=== PATIENT | female | born 1935 | race Caucasian/White ===

== ENCOUNTER 2016-06-19 14:10 | Inpatient (IN) | payer MEDICARE, OTHER ==
--- NOTE | 2016-06-19 14:53 | Emergency Department Record ---
History of Present Illness - General Chief Complaint: Abdominal Pain Stated Complaint: ABD PAIN,VOMITING Time Seen by Provider: 06/19/16 14:53 Source: Patient Mode of Arrival: Ambulatory Limitations: No limitations - History of Present Illness Initial Comments: The patient is here due to a 12 hour hx of abdominal pain with vomiting. She has vomited about 12 times but denies any diarrhea or passing any gas. The patient has had multiple abdominal surgeries and has had an SBO in the past and a surgery for adhesions at [facility]. She denies any other issues. MD Complaint: Abdominal pain Onset/Timin -: Hour(s) Location: Diffuse Severity: Mild Quality: Cramping Consistency: Intermittent Improves With: Nothing Worsens With: Nothing Associated Symptoms: Vomiting Treatments Prior to Arrival: Other - Related Data Home Medications Medication Instructions Recorded Confirmed Last Taken Candesartan Cilexetil [Atacand] 32 mg PO DAILY 06/19/16 06/19/16 06/18/16 Celecoxib [Celebrex] 100 mg PO BID 06/19/16 06/19/16 Unknown Dicyclomine HCl [Bentyl] 20 mg PO ASDIR 06/19/16 06/19/16 06/18/16 Estrogens, Conjugated [Premarin] 0.45 mg PO DAILY 06/19/16 06/19/16 06/18/16 Fluticasone/Salmeterol 100/50 1 disk IH Q12H 06/19/16 06/19/16 06/18/16 [Advair 100/50] Metoprolol Succinate [Toprol Xl] 25 mg PO DAILY 06/19/16 06/19/16 06/18/16 Rabeprazole Sodium [Aciphex] 20 mg PO DAILY 06/19/16 06/19/16 06/18/16 Tramadol HCl [Ultram] 50 mg PO Q6H 06/19/16 06/19/16 Unknown Trazodone HCl 100 mg PO DAILY 06/19/16 06/19/16 06/18/16 Allergies Allergy/AdvReac Type Severity Reaction Status Date / Time ciprofloxacin [From Cipro] AdvReac RASH Verified 06/19/16 14:56 ciprofloxacin HCl AdvReac RASH Verified 06/19/16 14:56 [From Cipro] esomeprazole magnesium AdvReac RASH Verified 06/19/16 14:56 [From Nexium] levofloxacin [From Levaquin] AdvReac HIVES Verified 06/19/16 14:56 Travel Screening - Travel/Exposure Within Last 30 Days Have you traveled within the last 30 days?: No - Travel/Exposure Within Last Year Have you traveled outside the [place] in the last year?: No - Additonal Travel Details Have you been exposed to anyone with a communicable illness?: No - Travel Symptoms Symptom Screening: None Review of Systems Constitutional: Denies: Chills, Fever Eyes: Denies: Eye discharge ENT: Denies: Congestion Respiratory: Denies: Cough Cardiovascular: Denies: Arrhythmia, Chest pain Endocrine: Denies: Fatigue Gastrointestinal: Reports: Abdominal pain, Constipation, Nausea, Vomiting. Denies: Diarrhea Genitourinary: Denies: Dysuria Musculoskeletal: Denies: Back pain Skin: Denies: Bruising Past Medical History - SOCIAL HISTORY Smoking Status: Former smoker Alcohol Use: None Drug Use: None - RESPIRATORY Hx Respiratory Disorders: Yes Hx Asthma: Yes Hx COPD: Yes - CARDIOVASCULAR Hx Cardio Disorders: No - NEURO Hx Neuro Disorders: No - GI Hx GI Disorders: Yes Hx Abdominal Pain: Yes Comment:: Adhesions - Hx Genitourinary Disorders: No - ENDOCRINE Hx Diabetes: No Hx Thyroid Disease: No - MUSCULOSKELETAL Hx Musculoskeletal Disorders: Yes Hx Arthritis: Yes - PSYCH Hx Psych Problems: No - HEMATOLOGY/ONCOLOGY Hx Hematology/Oncology Disorders: No Family Medical History Any Significant Family History?: No Physical Exam - General General Appearance: Alert, Oriented x3, Cooperative, No acute distress - Head Head exam: Atraumatic, Normocephalic, Normal inspection - Eye Eye exam: Normal appearance, PERRL - ENT Throat exam: Normal inspection. negative: Tonsillar erythema, Tonsillar exudate - Neck Neck exam: Normal inspection, Full ROM. negative: Tenderness - Respiratory Respiratory exam: Normal lung sounds bilaterally. negative: Respiratory distress - Cardiovascular Cardiovascular Exam: Regular rate, Normal rhythm, Normal heart sounds - GI/Abdominal GI/Abdominal exam: Soft, Distended, Tenderness (There is diffuse upper abdominal tenderness.). negative: Diminished bowel sounds, Guarding, Pulsatile mass, Rebound, Rigid - Extremities Extremities exam: Normal inspection, Full ROM, Normal capillary refill. negative: Tenderness - Neurological Neurological exam: Alert, Normal gait. negative: Abnormal gait, Motor sensory deficit - Psychiatric Psychiatric exam: negative: Agitated, Anxious Course Vital Signs 06/19/16 14:35 Temperature 97.7 F Pulse Rate 88 Respiratory 20 Rate Blood Pressure 174/83 Pulse Ox 96 - Reevaluation(s) Reevaluation #1: The patient is doing very well at this time. She is resting comfortably with no nausea, vomiting, or pain. I did explain the CT results to her and the need for admission and she accepts the plan. I also did discuss the case with Dr. Blake and she accepts the patient for admission. 06/19/16 16:26 Medical Decision Making - Data Complexity MDM Data: Labs Ordered and/or Reviewed, X-Ray Ordered and/or Reviewed - Lab Data Result diagrams: 06/19/16 15:20 06/19/16 15:20 - Radiology Data Radiology results: Report reviewed (Abd CT: Partial SBO.) Disposition Disposition: Admit Clinical Impression: Partial small bowel obstruction Disposition: Still a Patient at [facility] Decision to Admit: Admit from ER Decision to Admit Date: 06/19/16 Decision to Admit Time: 16:28 Accepting Physician: Lou Time Discussed w/Accepting Physician: 16:28 Condition: (1) Good Instructions: Abdominal Pain (ED) Forms: Patient Portal Access Time of Disposition: 16:27
[2016-06-19] MEDS ORDERED: 0.9 % SODIUM CHLORIDE 1,000 ML BAG IV ONE (15:01)
[2016-06-19] MEDS ORDERED: HYDROMORPHONE HCL 1 MG/ML CPJ IVP ONE (15:01)
[2016-06-19] MEDS ORDERED: ONDANSETRON HCL IV 4 MG/2 ML VIAL IV ONE (15:01)
[2016-06-19 15:41] LABS: ALBUMIN 4.7 gm/dL (3.5-5.0); ALKALINE PHOSPHATASE 90 U/L (38-126); ALT/SGPT 48 U/L (9-52); ANION GAP 10.7 (7-16); AST/SGOT 44 U/L (14-36); BILIRUBIN,TOTAL 1.25 mg/dL (0.2-1.3); BLOOD UREA NITROGEN 10 mg/dL (7-17); CARBON DIOXIDE 27.3 mmol/L (22-30); CREATININE 0.6 mg/dL (0.52-1.04); EST GLOMERULAR FILTRATION RATE > 60 ml/min; GLUCOSE,RANDOM 116 mg/dL (70-110); LIPASE 13 U/L (23-300); TOTAL PROTEIN 7.1 gm/dL (6.3-8.2)
[2016-06-19 15:59] LABS: HEMATOCRIT 48.1 % (35.0-47.0); HEMOGLOBIN 15.2 gm/dl (11.6-16.0); MEAN CELL VOLUME 88.9 fl (81-97); MEAN CORPUSCULAR HGB CONC 31.6 g/dl (32-36); MEAN PLATELET VOLUME 10.4 fl (7.4-10.4); PLATELET COUNT 268 K/uL (130-400); RED BLOOD COUNT 5.41 M/uL (3.80-5.40); RED CELL DISTRIBUTION WIDTH 13.8 % (11.5-14.5); WHITE BLOOD COUNT W/O DIFF 12.6 K/uL (4.2-12.2)
[2016-06-19 16:24] LABS: PLATELET ESTIMATE NORMAL (NORMAL)
[2016-06-19] MEDS ORDERED: FLUTICASONE/SALMETEROL 100/50 DISKUS INH SCH ×2 (18:08→22:00)
[2016-06-19] MEDS ORDERED: ONDANSETRON HCL IV 4 MG/2 ML VIAL IVP PRN (18:08)
[2016-06-19] MEDS ORDERED: HYDROMORPHONE HCL 1 MG/ML CPJ IVP PRN (18:08)
[2016-06-19] MEDS ORDERED: ACETAMINOPHEN 325 MG TAB PO PRN (20:06)
[2016-06-19] MEDS ORDERED: DICYCLOMINE HCL 10 MG CAPSULE PO PRN (20:06)
[2016-06-19] MEDS ORDERED: TRAMADOL HCL 50 MG TABLET PO PRN (20:06)
[2016-06-19] MEDS: 0.9 % SODIUM CHLORIDE 1000ML 1,000 ML IV PRN (21:10)
[2016-06-19] MEDS ORDERED: TRAZODONE 50 MG TABLET PO SCH (22:00)
[2016-06-19] MEDS: CELECOXIB 100 MG CAPSULE PO SCH (22:04)
[2016-06-20] MEDS ORDERED: PANTOPRAZOLE SODIUM 40 MG TABLET PO SCH (07:00)
--- NOTE | 2016-06-20 07:38 | CT SCAN REPORT ---
EXAM: CT OF THE ABDOMEN AND PELVIS WITHOUT CONTRAST HISTORY: PAIN ACROSS ABDOMEN FOR TWO DAYS, PARTICULARLY IN THE UPPER ABDOMEN, WITH VOMITING. TECHNIQUE: Axial CT scan of the abdomen and pelvis was performed without oral or IV contrast. Comparison: None. FINDINGS: Surgical clips in the gallbladder fossa consistent with prior cholecystectomy. There are enumerable low attenuation masses associated with the left kidney. These are incompletely evaluated without IV contrast although probably represent multiple renal cysts. The largest of these measures approximately 12 cm in diameter and has a small amount of calcification in the wall as well as probably a partially calcified septum. Because there are no appreciable cysts within the right kidney this does not appear to represent typical polycystic renal disease. There is a small low attenuation mass in the left adrenal measuring about 1.9 cm in size, nonspecific although probably an incidental lipid rich adenoma. No intrarenal calculi is seen on the right with no hydronephrosis or hydroureter on the right. No right ureteral calculus seen and no bladder calculus evident. No intrarenal calculi evident on the left and no hydroureter on the left evident with no left ureteral calculus seen. Evaluation of the bowel and viscera is very limited without oral or IV contrast. Given this limitation, no definite hepatic, splenic, right adrenal, right renal, or pancreatic mass identified. The uterus is not well seen and is presumably surgically absent. I recommend correlation with surgical history as no such history was provided. Mild amount of free fluid in the pelvis is nonspecific. Moderate diverticulosis in the left side of the colon fairly diffusely with a few diverticula in the right side of the colon as well. No definite diverticulitis evident. The colon and distal ileum are of normal caliber, however, there is dilatation of the jejunum and proximal ileum. Findings suggest a component of small bowel obstruction. Exact point and etiology of the apparent small bowel obstruction is difficult to establish. No free intraperitoneal air is evident. Diffuse degenerative changes in the lumbar spine with anterior subluxation of the body of L3 on L4 which appears to be on a degenerative basis related to the extensive facet joint arthropathy. IMPRESSION: 1. ENUMERABLE LOW ATTENUATION MASSES ARISING FROM THE LEFT KIDNEY PRESUMABLY REPRESENTING MULTIPLE VARIABLE SIZED CYSTS, SOME OF WHICH CONTAIN A SMALL AMOUNT OF CALCIFICATION IN THE WALL. THE APPEARANCE OF THE LEFT KIDNEY WOULD BE COMPATIBLE WITH POLYCYSTIC RENAL DISEASE, BUT NO APPRECIABLE CYSTS ARE SEEN WITHIN THE RIGHT KIDNEY. NO URINARY TRACT CALCULI OR HYDRONEPHROSIS EVIDENT. 2. APPEARANCE CONSISTENT WITH A COMPONENT OF SMALL BOWEL OBSTRUCTION. EXACT POINT AND ETIOLOGY OF OBSTRUCTION IS DIFFICULT TO DETERMINE ALTHOUGH IS PROBABLY IN THE REGION OF THE PROXIMAL ILEUM. 3. POSTOP CHOLECYSTECTOMY AND PROBABLY ALSO HYSTERECTOMY. 4. SMALL AMOUNT OF FREE FLUID IN THE PELVIS. NO FREE AIR EVIDENT. 5. DIVERTICULOSIS PARTICULARLY LEFT SIDE OF THE COLON, BUT NO DIVERTICULITIS EVIDENT. 6. FAIRLY EXTENSIVE DEGENERATIVE CHANGES IN THE SPINE. JOB NUMBER: [id number] [facility]
[2016-06-20] MEDS: 0.9 % SODIUM CHLORIDE 1000ML 1,000 ML IV PRN (07:42)
[2016-06-20] MEDS ORDERED: FLUTICASONE/SALMETEROL 100/50 DISKUS INH SCH (09:00)
[2016-06-20] MEDS ORDERED: METOPROLOL SUCC 25 MG TAB.ER PO SCH (10:00)
[2016-06-20] MEDS ORDERED: LORATADINE 10 MG TABLET PO SCH (10:00)
[2016-06-20] MEDS ORDERED: POLYETHYLENE GLY 17 GM PACKET PO SCH (10:00)
[2016-06-20] MEDS ORDERED: VALSARTAN 80 MG TAB PO SCH (10:00)
[2016-06-20] MEDS ORDERED: MULTIVITAMINS/MINERALS TABLET PO SCH (10:00)
[2016-06-20] MEDS: CELECOXIB 100 MG CAPSULE PO SCH (10:50)
[2016-06-20] MEDS ORDERED: 0.9 % SODIUM CHLORIDE 1000ML 1,000 ML IV PRN (11:50)
--- NOTE | 2016-06-20 11:56 | History & Physical ---
History of Present Illness - Date of Service Date of Service for History & Physical: 06/20/16 - History of Present Illness Admitting Diagnosis: 1. Partial Small Bowel Obstruction. History of Present Illness: 80 yo F with past history of SBO presented to ed yesterday with 12 hour hx of abdominal pain with vomiting. She had vomited about 12 times but denies any diarrhea or passing any gas prior to admission. The patient has had multiple abdominal surgeries and has had an SBO in the past and a surgery for adhesions at [facility]. She denies any other issues. Today she is feeling much better and has been passing flatus. She started receiving fluids at 10pm yesterday Patient has past medical history of COPD, HTN, diverticulitis, GERD, IBS, obstructive bowels, ulcers, adhesions, arthritis, former smoker (quit 89). Past surgical history of hysterectomy, thu, left Achilles, right upper lung lob removal s/p lung cancer, and multiple abdominal surgeries including one for SBP and for adhesions. PCP: Dr. Herrera Travel Screening - Travel/Exposure Within Last 30 Days Have you traveled within the last 30 days?: No - Travel/Exposure Within Last Year Have you traveled outside the [place] in the last year?: No - Additonal Travel Details Have you been exposed to anyone with a communicable illness?: No - Travel Symptoms Symptom Screening: None Review of Systems Constitutional: Denies: Chills, Fever Eyes: Denies: Eye discharge ENT: Denies: Congestion Respiratory: Denies: Cough Cardiovascular: Denies: Arrhythmia, Chest pain Endocrine: Denies: Fatigue Gastrointestinal: Reports: Constipation. Denies: Abdominal pain, Diarrhea, Nausea, Vomiting Genitourinary: Denies: Dysuria Musculoskeletal: Denies: Back pain Skin: Denies: Bruising Past Medical History - SOCIAL HISTORY Smoking Status: Former smoker Alcohol Use: Rare Drug Use: None - RESPIRATORY Hx Respiratory Disorders: Yes Hx Asthma: Yes Hx Bronchitis: No Hx COPD: Yes Hx Dyspnea: No Hx Pneumonia: No Hx Pulmonary Embolism: No Hx Sleep Apnea: No Hx Tuberculosis: No Hx of CPAP: No - CARDIOVASCULAR Hx Cardio Disorders: Yes Hx Abnormal EKG: No Hx Cardiac Cath: No Hx Chest Pain: No Hx CHF: No Hx Deep Vein Thrombosis: No Hx Edema: No Hx Heart Attack: No Hx Hypertension: Yes Hx Hypotension: No Hx Irregular Heartbeat: No Hx Palpitations: Yes Hx Pacemaker/Defib: No Hx Vascular Disease: No - NEURO Hx Neuro Disorders: No - GI Hx GI Disorders: Yes Hx Abdominal Pain: Yes Hx Celiac Disease: No Hx Crohn's Disease: No Hx Diverticulitis: Yes Hx GI Bleed: No Hx Reflux: Yes Hx Hepatitis/Jaundice: No Hx Hiatal Hernia: No Hx Irritable Bowel: Yes Hx Liver Disease: No Hx Nausea/Vomiting: No Hx Obstructive Bowel: Yes Hx Pancreatitis: No Hx Rectal Bleeding: No Hx Ulcer: Yes Hx Wt Loss/Wt Gain: No Hx of Polyps: Yes Comment:: Adhesions - Hx Genitourinary Disorders: Yes Hx Bladder Problem: No Hx Dialysis: No Hx Kidney Stones: No Hx Renal Disease: No Hx UTI: Yes - ENDOCRINE Hx Endocrine Disorders: No Hx Diabetes: No Hx Thyroid Disease: No - MUSCULOSKELETAL Hx Musculoskeletal Disorders: Yes Hx Arthritis: Yes Hx Back Injury: No Hx Fibromyalgia: No Hx Gout: No Hx Musculoskeletal Disease: No Hx Osteoporosis: No - PSYCH Hx Psych Problems: No - HEMATOLOGY/ONCOLOGY Hx Hematology/Oncology Disorders: No Family Medical History Any Significant Family History?: No H&P Meds/Allergies - Allergies Allergies: Allergies Allergy/AdvReac Type Severity Reaction Status Date / Time ciprofloxacin [From Cipro] AdvReac RASH Verified 06/19/16 14:56 ciprofloxacin HCl AdvReac RASH Verified 06/19/16 14:56 [From Cipro] esomeprazole magnesium AdvReac RASH Verified 06/19/16 14:56 [From Nexium] levofloxacin [From Levaquin] AdvReac HIVES Verified 06/19/16 14:56 - Home Medications Home Medications Medication Instructions Recorded Confirmed Last Taken Candesartan Cilexetil [Atacand] 32 mg PO DAILY 06/19/16 06/19/16 06/18/16 Celecoxib [Celebrex] 100 mg PO BID 06/19/16 06/19/16 Unknown Dicyclomine HCl [Bentyl] 20 mg PO ASDIR 06/19/16 06/19/16 06/18/16 Estrogens, Conjugated [Premarin] 0.45 mg PO DAILY 06/19/16 06/19/16 06/18/16 Fluticasone/Salmeterol 100/50 1 disk IH Q12H 06/19/16 06/19/16 06/18/16 [Advair 100/50] Metoprolol Succinate [Toprol Xl] 25 mg PO DAILY 06/19/16 06/19/16 06/18/16 Rabeprazole Sodium [Aciphex] 20 mg PO DAILY 06/19/16 06/19/16 06/18/16 Tramadol HCl [Ultram] 50 mg PO Q6H 06/19/16 06/19/16 Unknown Trazodone HCl 100 mg PO DAILY 06/19/16 06/19/16 06/18/16 - Active Medications Active Medications: Current Medications Acetaminophen (Tylenol 325mg) 650 mg PO Q6H PRN PRN Reason: Pain - General Celecoxib (Celebrex) 100 mg PO BID [facility] Last Admin: 06/20/16 10:50 Dose: 100 mg Dicyclomine HCl (Bentyl) 20 mg PO QIDACHS PRN PRN Reason: Abdominal Pain Hydromorphone HCl (Dilaudid) 0.5 mg IVP Q4H PRN PRN Reason: Analgesia Sodium Chloride () 1,000 mls @ 200 mls/hr IV .Q5H PRN PRN Reason: LARGE VOLUME IV Loratadine (Claritin) 10 mg PO DAILY [facility] Last Admin: 06/20/16 10:53 Dose: 10 mg Metoprolol Succinate (Toprol Xl) 25 mg PO DAILY [facility] Last Admin: 06/20/16 10:56 Dose: 25 mg Multivitamins/Minerals (Centrum) 1 tab PO DAILY [facility] Last Admin: 06/20/16 10:52 Dose: Not Given Ondansetron HCl (Zofran) 4 mg IVP Q4H PRN PRN Reason: NAUSEA [facility] Last Admin: 06/20/16 06:31 Dose: 40 mg Polyethylene Glycol (Miralax) 17 gm PO DAILY [facility] Fluticasone/Salmeterol (Advair 100/50) 1 puff INH Q12H [facility] Last Admin: 06/20/16 09:34 Dose: 1 puff Tramadol HCl (Ultram) 50 mg PO Q8H PRN PRN Reason: Pain - General Trazodone HCl (Desyrel) 100 mg PO QHS [facility] Last Admin: 06/19/16 22:04 Dose: 100 mg Valsartan (Diovan) 320 mg PO DAILY [facility] Last Admin: 06/20/16 11:05 Dose: 320 mg Physical Exam - Vital Signs Vital Signs: Vital Signs - Last 24 Hrs Temp Pulse Pulse Pulse Resp BP Pulse Ox 06/20/16 09:40 88 16 97 06/20/16 09:11 98.3 F 85 16 145/73 95 06/20/16 02:08 98.8 F 98 H 16 158/66 94 L 06/19/16 22:01 96 H 16 96 06/19/16 21:00 18 06/19/16 18:27 94 H 15 06/19/16 18:08 98.7 F 109 H 16 150/80 95 06/19/16 18:01 98.7 F 109 H 16 150/80 95 06/19/16 18:00 109 H 20 140/81 95 - General General Appearance: Alert, Oriented x3, Cooperative, No acute distress Limitations: No limitations - Head Head exam: Atraumatic, Normocephalic, Normal inspection - Eye Eye exam: Normal appearance, PERRL - ENT Throat exam: Normal inspection. negative: Tonsillar erythema, Tonsillar exudate - Neck Neck exam: Normal inspection, Full ROM. negative: Tenderness - Respiratory Respiratory exam: Normal lung sounds bilaterally. negative: Respiratory distress - Cardiovascular Cardiovascular Exam: Regular rate, Normal rhythm, Normal heart sounds - GI/Abdominal GI/Abdominal exam: Soft, Distended. negative: Diminished bowel sounds, Guarding , Pulsatile mass, Rebound, Rigid, Tenderness - Extremities Extremities exam: Normal inspection, Full ROM, Normal capillary refill. negative: Tenderness - Neurological Neurological exam: Alert, Normal gait. negative: Abnormal gait, Motor sensory deficit - Psychiatric Psychiatric exam: negative: Agitated, Anxious Results - Labs Result Diagrams: 06/19/16 15:20 06/19/16 15:20 VTE H&P Assessment - Risk for VTE Risk for VTE: Yes Risk Level: Moderate Risk Assessment Date: 06/20/16 Risk Assessment Time: 13:46 VTE Orders Placed or Will Be Placed: Yes Plan - Inpatient Certification Inpatient Certification: 06/20/16 13:46 - Detailed Diagnosis and Plan (1) Partial small bowel obstruction Current Visit: Yes Status: Acute Base Code: K56.69 - OTHER INTESTINAL OBSTRUCTION Comment: 06/20/16- will advance to clear liquids, continue IV hydration at 200ml/ hr, fleet enema, PEG orally and give patient time to have BM - explained 48-72 hr window to try to have BM prior to considering surgery as in past (2) DVT prophylaxis Current Visit: Yes Status: Acute Base Code: [id number] - Comment: 06/20/16- lovenox 40mg daily (3) Full code status Current Visit: Yes Status: Acute Base Code: Z78.9 - OTHER SPECIFIED HEALTH STATUS Comment: 06/20/16- full code
[2016-06-20] MEDS ORDERED: 0.9 % SODIUM CHLORIDE 1000ML 1,000 ML IV SCH (12:45)
--- NOTE | 2016-06-20 13:41 | History & Physical ---
History of Present Illness - Date of Service Date of Service for History & Physical: 06/20/16 - History of Present Illness Admitting Diagnosis: 1. Partial Small Bowel Obstruction. Travel Screening - Travel/Exposure Within Last 30 Days Have you traveled within the last 30 days?: No - Travel/Exposure Within Last Year Have you traveled outside the [place] in the last year?: No - Additonal Travel Details Have you been exposed to anyone with a communicable illness?: No - Travel Symptoms Symptom Screening: None Review of Systems Constitutional: Denies: Chills, Fever Eyes: Denies: Eye discharge ENT: Denies: Congestion Respiratory: Denies: Cough Cardiovascular: Denies: Arrhythmia, Chest pain Endocrine: Denies: Fatigue Gastrointestinal: Reports: Abdominal pain, Constipation, Nausea, Vomiting. Denies: Diarrhea Genitourinary: Denies: Dysuria Musculoskeletal: Denies: Back pain Skin: Denies: Bruising Past Medical History - SOCIAL HISTORY Smoking Status: Former smoker Alcohol Use: Rare Drug Use: None - RESPIRATORY Hx Respiratory Disorders: Yes Hx Asthma: Yes Hx Bronchitis: No Hx COPD: Yes Hx Dyspnea: No Hx Pneumonia: No Hx Pulmonary Embolism: No Hx Sleep Apnea: No Hx Tuberculosis: No Hx of CPAP: No - CARDIOVASCULAR Hx Cardio Disorders: Yes Hx Abnormal EKG: No Hx Cardiac Cath: No Hx Chest Pain: No Hx CHF: No Hx Deep Vein Thrombosis: No Hx Edema: No Hx Heart Attack: No Hx Hypertension: Yes Hx Hypotension: No Hx Irregular Heartbeat: No Hx Palpitations: Yes Hx Pacemaker/Defib: No Hx Vascular Disease: No - NEURO Hx Neuro Disorders: No - GI Hx GI Disorders: Yes Hx Abdominal Pain: Yes Hx Celiac Disease: No Hx Crohn's Disease: No Hx Diverticulitis: Yes Hx GI Bleed: No Hx Reflux: Yes Hx Hepatitis/Jaundice: No Hx Hiatal Hernia: No Hx Irritable Bowel: Yes Hx Liver Disease: No Hx Nausea/Vomiting: No Hx Obstructive Bowel: Yes Hx Pancreatitis: No Hx Rectal Bleeding: No Hx Ulcer: Yes Hx Wt Loss/Wt Gain: No Hx of Polyps: Yes Comment:: Adhesions - Hx Genitourinary Disorders: Yes Hx Bladder Problem: No Hx Dialysis: No Hx Kidney Stones: No Hx Renal Disease: No Hx UTI: Yes - ENDOCRINE Hx Endocrine Disorders: No Hx Diabetes: No Hx Thyroid Disease: No - MUSCULOSKELETAL Hx Musculoskeletal Disorders: Yes Hx Arthritis: Yes Hx Back Injury: No Hx Fibromyalgia: No Hx Gout: No Hx Musculoskeletal Disease: No Hx Osteoporosis: No - PSYCH Hx Psych Problems: No - HEMATOLOGY/ONCOLOGY Hx Hematology/Oncology Disorders: No Family Medical History Any Significant Family History?: No H&P Meds/Allergies - Allergies Allergies: Allergies Allergy/AdvReac Type Severity Reaction Status Date / Time ciprofloxacin [From Cipro] AdvReac RASH Verified 06/19/16 14:56 ciprofloxacin HCl AdvReac RASH Verified 06/19/16 14:56 [From Cipro] esomeprazole magnesium AdvReac RASH Verified 06/19/16 14:56 [From Nexium] levofloxacin [From Levaquin] AdvReac HIVES Verified 06/19/16 14:56 - Home Medications Home Medications Medication Instructions Recorded Confirmed Last Taken Candesartan Cilexetil [Atacand] 32 mg PO DAILY 06/19/16 06/19/16 06/18/16 Celecoxib [Celebrex] 100 mg PO BID 06/19/16 06/19/16 Unknown Dicyclomine HCl [Bentyl] 20 mg PO ASDIR 06/19/16 06/19/16 06/18/16 Estrogens, Conjugated [Premarin] 0.45 mg PO DAILY 06/19/16 06/19/16 06/18/16 Fluticasone/Salmeterol 100/50 1 disk IH Q12H 06/19/16 06/19/16 06/18/16 [Advair 100/50] Metoprolol Succinate [Toprol Xl] 25 mg PO DAILY 06/19/16 06/19/16 06/18/16 Rabeprazole Sodium [Aciphex] 20 mg PO DAILY 06/19/16 06/19/16 06/18/16 Tramadol HCl [Ultram] 50 mg PO Q6H 06/19/16 06/19/16 Unknown Trazodone HCl 100 mg PO DAILY 06/19/16 06/19/16 06/18/16 - Active Medications Active Medications: Current Medications Acetaminophen (Tylenol 325mg) 650 mg PO Q6H PRN PRN Reason: Pain - General Celecoxib (Celebrex) 100 mg PO BID CALEB Last Admin: 06/20/16 10:50 Dose: 100 mg Dicyclomine HCl (Bentyl) 20 mg PO QIDACHS PRN PRN Reason: Abdominal Pain Hydromorphone HCl (Dilaudid) 0.5 mg IVP Q4H PRN PRN Reason: Analgesia Sodium Chloride () 1,000 mls @ 200 mls/hr IV .Q5H [facility] Loratadine (Claritin) 10 mg PO DAILY [facility] Last Admin: 06/20/16 10:53 Dose: 10 mg Metoprolol Succinate (Toprol Xl) 25 mg PO DAILY [facility] Last Admin: 06/20/16 10:56 Dose: 25 mg Multivitamins/Minerals (Centrum) 1 tab PO DAILY [facility] Last Admin: 06/20/16 10:52 Dose: Not Given Ondansetron HCl (Zofran) 4 mg IVP Q4H PRN PRN Reason: NAUSEA Pantoprazole Sodium (Protonix) 40 mg PO DAILYAC [facility] Last Admin: 06/20/16 06:31 Dose: 40 mg Polyethylene Glycol (Miralax) 17 gm PO DAILY [facility] Last Admin: 06/20/16 12:57 Dose: 17 gm Fluticasone/Salmeterol (Advair 100/50) 1 puff INH Q12H [facility] Last Admin: 06/20/16 09:34 Dose: 1 puff Tramadol HCl (Ultram) 50 mg PO Q8H PRN PRN Reason: Pain - General Trazodone HCl (Desyrel) 100 mg PO QHS [facility] Last Admin: 06/19/16 22:04 Dose: 100 mg Valsartan (Diovan) 320 mg PO DAILY [facility] Last Admin: 06/20/16 11:05 Dose: 320 mg Physical Exam - General General Appearance: Alert, Oriented x3, Cooperative, No acute distress Limitations: No limitations - Head Head exam: Atraumatic, Normocephalic, Normal inspection - Eye Eye exam: Normal appearance, PERRL - ENT Throat exam: Normal inspection. negative: Tonsillar erythema, Tonsillar exudate - Neck Neck exam: Normal inspection, Full ROM. negative: Tenderness - Respiratory Respiratory exam: Normal lung sounds bilaterally. negative: Respiratory distress - Cardiovascular Cardiovascular Exam: Regular rate, Normal rhythm, Normal heart sounds - GI/Abdominal GI/Abdominal exam: Soft, Distended, Tenderness (There is diffuse upper abdominal tenderness.). negative: Diminished bowel sounds, Guarding, Pulsatile mass, Rebound, Rigid - Extremities Extremities exam: Normal inspection, Full ROM, Normal capillary refill. negative: Tenderness - Neurological Neurological exam: Alert, Normal gait. negative: Abnormal gait, Motor sensory deficit - Psychiatric Psychiatric exam: negative: Agitated, Anxious Results - Labs Result Diagrams: 06/19/16 15:20 06/19/16 15:20 Plan - Inpatient Certification Inpatient Certification: Admit to inpatient care: Based on my medical assessment, after consideration of patient's risk factors (age, co-morbidities and patient presenting symptoms and acuity), I expect that this patient will remain in the hospital greater than or equal to two midnights and that the services needed warrant inpatient care because: Patient Risk Factors: [] Estimated length of stay: [] The patient may reasonably be expected to be discharged or transferred to a hospital within 96 hours after admission to [facility]. Services needed: [] Post hospital care (if known): [] I certify that my determination is in accordance with my understanding of Medicare requirements for reasonable and necessary inpatient services.
--- NOTE | 2016-06-20 15:06 | Discharge Summary ---
Providers Discharge Summary Date: 06/20/16 Date of admission: 06/20/16 12:30 Expected Date of Discharge: 06/20/16 Attending physician: STEVEN VELOZ Primary care physician: TLEMA PALENCIA M.D. Physical Exam - General General Appearance: Alert, Oriented x3, Cooperative, No acute distress Limitations: No limitations - Head Head exam: Atraumatic, Normocephalic, Normal inspection - Eye Eye exam: Normal appearance, PERRL - ENT Throat exam: Normal inspection. negative: Tonsillar erythema, Tonsillar exudate - Neck Neck exam: Normal inspection, Full ROM. negative: Tenderness - Respiratory Respiratory exam: Normal lung sounds bilaterally. negative: Respiratory distress - Cardiovascular Cardiovascular Exam: Regular rate, Normal rhythm, Normal heart sounds - GI/Abdominal GI/Abdominal exam: Soft, Distended. negative: Diminished bowel sounds, Guarding , Pulsatile mass, Rebound, Rigid, Tenderness - Extremities Extremities exam: Normal inspection, Full ROM, Normal capillary refill. negative: Tenderness - Neurological Neurological exam: Alert, Normal gait. negative: Abnormal gait, Motor sensory deficit - Psychiatric Psychiatric exam: negative: Agitated, Anxious Hospitalization - Hospitalization Admission Diagnosis: 1. Partial Small Bowel Obstruction. - Problem List/Discharge Diagnosis (1) Partial small bowel obstruction Current Visit: Yes Status: Acute Base Code: K56.69 - OTHER INTESTINAL OBSTRUCTION Comment: 06/20/16- patient had BM after fleet enema and fluids, advanced diet and tolerated well will discharge later today (2) DVT prophylaxis Current Visit: Yes Status: Acute Base Code: [id number] - Comment: 06/20/16- lovenox 40mg daily (3) Full code status Current Visit: Yes Status: Acute Base Code: Z78.9 - OTHER SPECIFIED HEALTH STATUS Comment: 06/20/16- full code - Hospitalization Course Disposition: Home, Self-Care Condition at Discharge: (2) Stable Discharge Diagnosis: 1) partial SBO- resolved Discharge Medications - Discharge Medications Home Medications: Ambulatory Orders Candesartan Cilexetil [Atacand] 32 mg PO DAILY 06/19/16 [Last Taken 06/18/16] Celecoxib [Celebrex] 100 mg PO BID 06/19/16 [Last Taken Unknown] Dicyclomine HCl [Bentyl] 20 mg PO ASDIR 06/19/16 [Last Taken 06/18/16] Estrogens, Conjugated [Premarin] 0.45 mg PO DAILY 06/19/16 [Last Taken 06/18/16] Fluticasone/Salmeterol 100/50 [Advair 100/50] 1 disk IH Q12H 06/19/16 [Last Taken 06/18/16] Metoprolol Succinate [Toprol Xl] 25 mg PO DAILY 06/19/16 [Last Taken 06/18/16] Rabeprazole Sodium [Aciphex] 20 mg PO DAILY 06/19/16 [Last Taken 06/18/16] Tramadol HCl [Ultram] 50 mg PO Q6H 06/19/16 [Last Taken Unknown] Trazodone HCl 100 mg PO DAILY 06/19/16 [Last Taken 06/18/16] Discharge Plan - Discharge Instructions Activity at Discharge: Increase Activity as Tolerated Diet at Discharge: Advance to Usual Diet Instructions: Abdominal Pain (ED)
[2016-06-21] MEDS ORDERED: ENOXAPARIN 40 MG/0.4 ML SYR SC SCH (10:00)
== END 2016-06-20 15:45 | disposition home or self-care (01) | DRG 390 ==
LOC: ER 14:10 → MEDSURG 17:51 → OBSVTOIN 06-20 12:30
PROVIDERS: ADMIT Family Medicine; ATTEND Family Medicine
DX: K56.69 Other intestinal obstruction (principal); K57.30 Diverticulosis of large intestine without perforation or abscess without bleeding; Z78.9 Other specified health status
CPT/HCPCS: 99285 ×2; 96374; 96375; 83690; 80076; 80048; 85027; 74176; 94640 ×2; G0378 ×7; J2405; J1170; 99220; J7030

== ENCOUNTER 2018-06-08 22:17 | Inpatient (IN) | payer MEDICARE, OTHER ==
[2018-06-08 22:32] LABS: URINE APPEARANCE CLOUDY; URINE BILIRUBIN NEGATIVE (NEGATIVE); URINE BLOOD MODERATE (NEGATIVE); URINE COLOR YELLOW; URINE GLUCOSE (UA) NEGATIVE (NEGATIVE); URINE KETONE NEGATIVE (NEGATIVE); URINE LEUKOCYTE ESTERASE LARGE (NEGATIVE); URINE NITRITE POSITIVE (NEGATIVE)
[2018-06-08 22:34] LABS: URINE PROTEIN 300 mg/dL (NEGATIVE)
[2018-06-08] MEDS ORDERED: ACETAMINOPHEN 1,000 MG/100 ML BTL IVPB ONE (22:34)
[2018-06-08] MEDS ORDERED: ONDANSETRON HCL IV 4 MG/2 ML VIAL IVP ONE (22:34)
[2018-06-08] MEDS ORDERED: 0.9 % SODIUM CHLORIDE 1,000 ML BAG IV ONE (22:34)
[2018-06-08 22:40] LABS: URINE BACTERIA 2+; URINE EPITHELIAL CELLS 0 - 2 (FEW); URINE WBC 21 - 35 (0-2/hpf)
--- NOTE | 2018-06-08 22:41 | Emergency Department Record ---
History of Present Illness - General Chief Complaint: Female Urogenital Problem Stated Complaint: UTI/ABD PAIN Time Seen by Provider: 06/08/18 22:34 Source: Patient, Family Mode of Arrival: Ambulatory Limitations: No limitations - History of Present Illness Initial Comments: 82 yo female presents not feeling well since Thursday. The symptoms started with nausea,vomiting and decreased appetite with diffuse pain. No fevers. She ate breakfast Thursday and states she has had very little to eat since then. She has had somewhat vague diffuse abdominal pain. No diarrhea. She has had a few small formed stools. She was seen in a [facility] two days ago. She was told she had a UTI. She has been on Macrobid two days without improvement. She has had a hysterectomy, cholecystectomy, and adhesions in the past. PCP is Becky Gasca MD Complaint: Abdominal pain Onset/Timin -: Days(s) (3) Location: LUQ, Other (all over) Radiation: LUQ, Other (all over) Migration to: Periumbilical Severity: Moderate Severity scale (1-10): 5 Quality: Aching Consistency: Intermittent Improves With: Nothing Worsens With: Eating Associated Symptoms: Anorexia, Vomiting Treatments Prior to Arrival: Other (Antibiotic) - Related Data LMP (females 10-50): Unknown Patient : No Home Medications Medication Instructions Recorded Confirmed Last Taken Ascorbic Acid [Vitamin C] 1,000 mg PO DAILY 06/08/18 06/08/18 Unknown B12/Levomefolate Calcium/B-6 1 each PO DAILY 06/08/18 06/08/18 Unknown [Folbic Rf Tablet] Ergocalciferol (Vitamin D2) 50,000 unit PO DAILY 06/08/18 06/08/18 Unknown [Vitamin D2] Magnesium Oxide [Magnesium] 500 mg PO DAILY 06/08/18 06/08/18 Unknown Nitrofurantoin [place] [Macrobid] 100 mg PO BID 06/08/18 06/08/18 06/08/18 Phenazopyridine HCl [Pyridium] 200 mg PO BID 06/08/18 06/08/18 06/08/18 Sennosides/Docusate Sodium [Senna 1 each PO DAILY 06/08/18 06/08/18 Unknown Plus] Allergies Allergy/AdvReac Type Severity Reaction Status Date / Time ciprofloxacin [From Cipro] AdvReac RASH Verified 06/19/16 14:56 ciprofloxacin HCl AdvReac RASH Verified 06/19/16 14:56 [From Cipro] esomeprazole magnesium AdvReac RASH Verified 06/19/16 14:56 [From Nexium] levofloxacin [From Levaquin] AdvReac HIVES Verified 06/19/16 14:56 Travel Screening - Travel/Exposure Within Last 30 Days Have you traveled within the last 30 days?: No - Travel Symptoms Symptom Screening: Vomiting Review of Systems Constitutional: Reports: Malaise, Weakness. Denies: Chills, Fever Eyes: Denies: Eye discharge ENT: Denies: Congestion, Throat pain Respiratory: Denies: Cough, Dyspnea, Hemoptysis, Stridor, Wheezes Cardiovascular: Denies: Chest pain, Palpitations, Syncope Endocrine: Reports: Fatigue. Denies: Polydipsia, Polyuria Gastrointestinal: Reports: Abdominal pain, Constipation, Nausea, Vomiting. Denies: Diarrhea, Hematemesis, Hematochezia, Melena Genitourinary: Denies: Dysuria, Urgency Musculoskeletal: Denies: Arthralgia, Back pain, Myalgia Skin: Denies: Bruising, Change in color, Rash Neurological: Denies: Headache Psychiatric: Denies: Anxiety Hematological/Lymphatic: Denies: Blood Clots, Easy bleeding, Easy bruising Past Medical History - SOCIAL HISTORY Smoking Status: Former smoker Drug Use: None - RESPIRATORY Hx Respiratory Disorders: Yes Hx Asthma: Yes Hx Bronchitis: No Hx COPD: Yes Hx Dyspnea: No Hx Pneumonia: No Hx Pulmonary Embolism: No Hx Sleep Apnea: No Hx Tuberculosis: No Hx of CPAP: No - CARDIOVASCULAR Hx Cardio Disorders: Yes Hx Abnormal EKG: No Hx Cardiac Cath: No Hx Chest Pain: No Hx CHF: No Hx Deep Vein Thrombosis: No Hx Edema: No Hx Heart Attack: No Hx Hypertension: Yes Hx Hypotension: No Hx Irregular Heartbeat: No Hx Palpitations: Yes Hx Pacemaker/Defib: No Hx Vascular Disease: No - NEURO Hx Neuro Disorders: No - GI Hx GI Disorders: Yes Hx Abdominal Pain: Yes Hx Celiac Disease: No Hx Crohn's Disease: No Hx Diverticulitis: Yes Hx GI Bleed: No Hx Reflux: Yes Hx Hepatitis/Jaundice: No Hx Hiatal Hernia: No Hx Irritable Bowel: Yes Hx Liver Disease: No Hx Nausea/Vomiting: No Hx Obstructive Bowel: Yes Hx Pancreatitis: No Hx Rectal Bleeding: No Hx Ulcer: Yes Hx Wt Loss/Wt Gain: No Hx of Polyps: Yes Comment:: Adhesions - Hx Genitourinary Disorders: Yes Hx Bladder Problem: No Hx Dialysis: No Hx Kidney Stones: No Hx Renal Disease: No Hx UTI: Yes - ENDOCRINE Hx Endocrine Disorders: No Hx Diabetes: No Hx Thyroid Disease: No - MUSCULOSKELETAL Hx Musculoskeletal Disorders: Yes Hx Arthritis: Yes Hx Back Injury: No Hx Fibromyalgia: No Hx Gout: No Hx Musculoskeletal Disease: No Hx Osteoporosis: No - PSYCH Hx Psych Problems: No - HEMATOLOGY/ONCOLOGY Hx Hematology/Oncology Disorders: No Physical Exam - General General Appearance: Alert, Oriented x3, Cooperative, No acute distress Limitations: No limitations - Head Head exam: Atraumatic, Normal inspection - Eye Eye exam: Normal appearance. negative: Conjunctival injection - ENT ENT exam: Normal exam, Mucous membranes moist Ear exam: Normal external inspection Nasal Exam: Normal inspection Mouth exam: Normal external inspection - Neck Neck exam: Normal inspection - Respiratory Respiratory exam: Normal lung sounds bilaterally. negative: Respiratory distress - Cardiovascular Cardiovascular Exam: Regular rate, Normal rhythm, Normal heart sounds - GI/Abdominal GI/Abdominal exam: Soft, Tenderness (mild tender diffusely. very soft abdomen) . negative: Distended, Guarding, Rebound - Rectal Rectal exam: Deferred - exam: Deferred - Extremities Extremities exam: Normal inspection - Back Back exam: Denies: CVA tenderness (R), CVA tenderness (L) - Neurological Neurological exam: Alert, Oriented X3 - Psychiatric Psychiatric exam: Normal affect, Normal mood. negative: Agitated, Anxious - Skin Skin exam: Dry, Intact, Normal color, Warm Course Vital Signs 06/08/18 22:32 Temperature 98.8 F Pulse Rate [ 89 Pulse Ox Probe] Respiratory 20 Rate Blood Pressure 141/65 [Left Arm] Pulse Ox 95 - Reevaluation(s) Reevaluation #1: CT of the abdomen and pelvis 06/20/16 Component of partial SBO, diverticulosis without diverticulitis, She was admitted to [facility] at that time 06/08/18 22:41 06/08/18 23:44 CBC demonstrates a WBC count of 18 The CMP demonstrates a K of 3.3, Bili of 2.2, AST 36 ALT 62 ALK PHOS of 153 Lactic acid of 1.1 Lipase is normal 06/08/18 23:45 06/09/18 01:[address] of the abdomen and pelvis was reviewed. Left renal cysts, Left adrenal nodule, diverticula without diverticulitis. Given the nausea, vomiting, elevated labs with UTI I recommend admission for IV antibiotics and fluids Medical Decision Making - Lab Data Result diagrams: 06/08/18 22:50 06/08/18 22:50 Lab Results 06/08/18 Range/Units Unknown Urine Color Yellow Urine Appearance Cloudy Urine pH 6.5 (5.0-8.0) Ur Specific [place] 1.015 (1.002-1.030) Urine Protein 300 mg/dl H (NEGATIVE) Urine Glucose (UA) Negative (NEGATIVE) Urine Ketones Negative (NEGATIVE) Urine Blood Moderate (NEGATIVE) Urine Nitrite Positive H (NEGATIVE) Urine Bilirubin Negative (NEGATIVE) Urine Urobilinogen 1.0 (0.20 - 1.00) E.U./dL Ur Leukocyte Esterase Large H (NEGATIVE) Disposition Disposition: Admit Clinical Impression: Urinary tract infection, Vomiting, Abdominal pain Disposition: Still a Patient at [facility] Decision to Admit: Admit from ER Decision to Admit Date: 06/09/18 Decision to Admit Time: 01:21 Condition: (2) Stable Time of Disposition: :21 Quality - Quality Measures Quality Measures: N/A - Blood Pressure Screening Does Patient Have Any of the Following: Active Dx of HTN Blood Pressure Classification: Hypertensive Reading Systolic Measurement: 190 Diastolic Measurement: 72 Screening for High Blood Pressure: Patient Exclusion, Hx of HTN [[id number]]
[2018-06-08 23:00] LABS: HEMATOCRIT 40.7 % (35.0-47.0); HEMOGLOBIN 12.9 gm/dl (11.6-16.0); MEAN CELL VOLUME 89.3 fl (81-97); MEAN CORPUSCULAR HEMOGLOBIN 28.3 pg (27-33); MEAN CORPUSCULAR HGB CONC 31.7 g/dl (32-36); MEAN PLATELET VOLUME 9.6 fl (7.4-10.4); PLATELET COUNT 232 K/uL (130-400); RED BLOOD COUNT 4.56 M/uL (3.80-5.40); RED CELL DISTRIBUTION WIDTH 13.5 % (11.5-14.5)
[2018-06-08] MEDS ORDERED: CEFTRIAXONE 1GM/50ML BAG 1 GM/50 ML BAG IVPB ONE (23:04)
[2018-06-08 23:09] LABS: BLOOD UREA NITROGEN 10 mg/dL (8-23); CREATININE 0.6 mg/dL (0.5-0.9); EST GLOMERULAR FILTRATION RATE > 60 mL/min
[2018-06-08 23:10] LABS: TOTAL PROTEIN 6.5 g/dL (6.6-8.7)
[2018-06-08 23:12] LABS: GLUCOSE,RANDOM 102 mg/dL (74-109); LACTIC ACID 1.1 mmol/L (0.5-2.2)
[2018-06-08 23:14] LABS: ALBUMIN 3.3 g/dL (4.0-5.0); ALT/SGPT 62 U/L (<33); AST/SGOT 36 U/L (10.0-35.0)
[2018-06-08 23:15] LABS: ALKALINE PHOSPHATASE 153 U/L (35-104); LIPASE 8 U/L (13-60)
[2018-06-08 23:22] LABS: PLATELET ESTIMATE NORMAL (NORMAL)
[2018-06-08 23:23] LABS: TOXIC GRANULATION 1+
[2018-06-09] MEDS ORDERED: ONDANSETRON HCL IV 4 MG/2 ML VIAL IVP PRN (01:41)
[2018-06-09] MEDS ORDERED: ACETAMINOPHEN 325 MG TAB PO PRN (01:41)
[2018-06-09] MEDS: TRAMADOL HCL 50 MG TABLET PO SCH ×4 (02:11→14:12)
[2018-06-09] MEDS: DIPHENHYDRAMINE HCL 25 MG CAPSULE PO PRN ×2 (02:15→21:20)
[2018-06-09] MEDS: PHENAZOPYRIDINE HCL 95 MG TABLET PO SCH ×2 (02:18→10:06)
[2018-06-09] MEDS: 0.9 % SODIUM CHLORIDE 1000ML 1,000 ML IV PRN ×2 (02:21→07:46)
[2018-06-09] MEDS: PANTOPRAZOLE SODIUM 40 MG TABLET PO SCH (06:25)
[2018-06-09 06:45] LABS: BASO % 0.1 % (0-6); EOS % 0.2 % (0-6); HEMOGLOBIN 11.3 gm/dl (11.6-16.0); LYMPH % 10.4 % (16-45); MEAN CELL VOLUME 90.5 fl (81-97); MEAN CORPUSCULAR HGB CONC 31.4 g/dl (32-36); MEAN PLATELET VOLUME 10.1 fl (7.4-10.4); MONO % 9.3 % (0-9); PLATELET COUNT 229 K/uL (130-400); RED BLOOD COUNT 3.98 M/uL (3.80-5.40); RED CELL DISTRIBUTION WIDTH 13.4 % (11.5-14.5); WHITE BLOOD COUNT W/O DIFF 14.2 K/uL (4.2-12.2)
[2018-06-09 06:49] LABS: MEAN CORPUSCULAR HEMOGLOBIN 28.3 pg (27-33)
[2018-06-09 06:55] LABS: ALB/GLOB RATIO 0.9 (1.1-1.8); ALBUMIN 2.7 g/dL (4.0-5.0); ALKALINE PHOSPHATASE 145 U/L (35-104); ALT/SGPT 50 U/L (<33); AST/SGOT 28 U/L (10.0-35.0); BLOOD UREA NITROGEN 7 mg/dL (8-23); CREATININE 0.4 mg/dL (0.5-0.9); EST GLOMERULAR FILTRATION RATE > 60 mL/min; GLUCOSE,RANDOM 96 mg/dL (74-109); TOTAL PROTEIN 5.6 g/dL (6.6-8.7)
[2018-06-09] MEDS ORDERED: POTASSIUM CHLORIDE 20 MEQ TABLET PO ONE (07:18)
[2018-06-09] MEDS: VALSARTAN 80 MG TAB PO SCH (10:06)
[2018-06-09] MEDS: ENOXAPARIN 40 MG/0.4 ML SYR SQ SCH (10:06)
[2018-06-09] MEDS: ASCORBIC ACID 500 MG TAB PO SCH (10:07)
[2018-06-09] MEDS: METOPROLOL SUCC 25 MG TAB.ER PO SCH (10:07)
[2018-06-09] MEDS ORDERED: 0.9 % SODIUM CHLORIDE 1000ML 1,000 ML IV PRN (10:50)
--- NOTE | 2018-06-09 10:58 | History & Physical ---
History of Present Illness - Date of Service Date of Service for History & Physical: 06/09/18 - History of Present Illness Admitting Diagnosis: UTI, abdominal pain, elevated WBC count,dehydration History of Present Illness: 82 year old female patient presents to ED for generalized "not feeling well" since Thursday. Patient states she began having nausea, vomiting, decreased appetite, and generalized pain. She was seen in [facility] on Thursday and diagnosed with a UTI. Patient was started on Macrobid at that time. Patient states she continued to have worsening of symptoms and presented to ED Thursday night. Patient reports very little PO intake since Thursday, diffuse abdominal pain, no diarrhea, no recent vomiting, and no fevers. Patient's medical history includes HTN, hysterectomy, cholecystectomy, abdominal adhesions, and RUL lobectomy due to lung cancer. PCP: Dr. Becky Cole ED Course: Temp 98.8F, RR 20, BP 141/65, HR 89, Pulse ox 95% WBC 18, K 3.3, Bili 2.2, AST 26, ALT 62, Alk Phos 153, Lactic acid 1.1, lipase nml UA: positive for nitrites, moderate blood, large leukocytes Abd/pelvis CT: left renal cysts, left adrenal nodule, diverticula without diverticulitis 06/09/18: Patient A&O x 4, resting comfortably in bed. Patient tolerating clear liquid diet, ambulating in room to bathroom. Patient continues to report weakness and fatigue, but states the nausea and abdominal pain are improving. Has been receiving Rocephin 1gm IVPB q12hr and IV hydration at 125ml/hr. Will continue with IV hydration, IV Rocephin, and advancing diet as tolerated. Travel Screening - Travel/Exposure Within Last 30 Days Have you traveled within the last 30 days?: No - Travel/Exposure Within Last Year Have you traveled outside the [place] in the last year?: No - Additonal Travel Details Have you been exposed to anyone with a communicable illness?: No - Travel Symptoms Symptom Screening: Vomiting Review of Systems Reviewed: No additional complaints except as noted below Constitutional: Reports: Malaise, Weakness. Denies: Chills, Fever Eyes: Denies: Eye discharge ENT: Denies: Congestion, Throat pain Respiratory: Denies: Cough, Dyspnea, Hemoptysis, Stridor, Wheezes Cardiovascular: Denies: Chest pain, Palpitations, Syncope Endocrine: Reports: Fatigue. Denies: Polydipsia, Polyuria Gastrointestinal: Reports: Abdominal pain, Diarrhea, Nausea. Denies: Constipation, Hematemesis, Hematochezia, Melena, Vomiting Genitourinary: Denies: Dysuria, Urgency Musculoskeletal: Denies: Arthralgia, Back pain, Myalgia Skin: Denies: Bruising, Change in color, Rash Neurological: Denies: Headache Psychiatric: Denies: Anxiety Hematological/Lymphatic: Denies: Blood Clots, Easy bleeding, Easy bruising Past Medical History - SOCIAL HISTORY Smoking Status: Former smoker Drug Use: None - RESPIRATORY Hx Respiratory Disorders: Yes Hx Asthma: Yes Hx Bronchitis: No Hx COPD: Yes Hx Dyspnea: No Hx Pneumonia: No Hx Pulmonary Embolism: No Hx Sleep Apnea: No Hx Tuberculosis: No Hx of CPAP: No - CARDIOVASCULAR Hx Cardio Disorders: Yes Hx Abnormal EKG: No Hx Cardiac Cath: No Hx Chest Pain: No Hx CHF: No Hx Deep Vein Thrombosis: No Hx Edema: No Hx Heart Attack: No Hx Hypertension: Yes Hx Hypotension: No Hx Irregular Heartbeat: No Hx Palpitations: Yes Hx Pacemaker/Defib: No Hx Vascular Disease: No - NEURO Hx Neuro Disorders: No - GI Hx GI Disorders: Yes Hx Abdominal Pain: Yes Hx Celiac Disease: No Hx Crohn's Disease: No Hx Diverticulitis: Yes Hx GI Bleed: No Hx Reflux: Yes Hx Hepatitis/Jaundice: No Hx Hiatal Hernia: No Hx Irritable Bowel: Yes Hx Liver Disease: No Hx Nausea/Vomiting: No Hx Obstructive Bowel: Yes Hx Pancreatitis: No Hx Rectal Bleeding: No Hx Ulcer: Yes Hx Wt Loss/Wt Gain: No Hx of Polyps: Yes Comment:: Adhesions - Hx Genitourinary Disorders: Yes Hx Bladder Problem: No Hx Dialysis: No Hx Kidney Stones: No Hx Renal Disease: No Hx UTI: Yes - ENDOCRINE Hx Endocrine Disorders: No Hx Diabetes: No Hx Thyroid Disease: No - MUSCULOSKELETAL Hx Musculoskeletal Disorders: Yes Hx Arthritis: Yes Hx Back Injury: No Hx Fibromyalgia: No Hx Gout: No Hx Musculoskeletal Disease: No Hx Osteoporosis: No - PSYCH Hx Psych Problems: No - HEMATOLOGY/ONCOLOGY Hx Hematology/Oncology Disorders: No Family Medical History Any Significant Family History?: No Family Hx Comment (NOT TO BE USED IN PLACE OF ITEMS BELOW): denies H&P Meds/Allergies - Allergies Allergies: Allergies Allergy/AdvReac Type Severity Reaction Status Date / Time ciprofloxacin [From Cipro] AdvReac RASH Verified 06/19/16 14:56 ciprofloxacin HCl AdvReac RASH Verified 06/19/16 14:56 [From Cipro] esomeprazole magnesium AdvReac RASH Verified 06/19/16 14:56 [From Nexium] levofloxacin [From Levaquin] AdvReac HIVES Verified 06/19/16 14:56 - Home Medications Home Medications Medication Instructions Recorded Confirmed Last Taken Ascorbic Acid [Vitamin C] 1,000 mg PO DAILY 06/08/18 06/08/18 Unknown B12/Levomefolate Calcium/B-6 1 each PO DAILY 06/08/18 06/08/18 Unknown [Folbic Rf Tablet] Ergocalciferol (Vitamin D2) 50,000 unit PO DAILY 06/08/18 06/08/18 Unknown [Vitamin D2] Magnesium Oxide [Magnesium] 500 mg PO DAILY 06/08/18 06/08/18 Unknown Nitrofurantoin [place] [Macrobid] 100 mg PO BID 06/08/18 06/08/18 06/08/18 Phenazopyridine HCl [Pyridium] 200 mg PO BID 06/08/18 06/08/18 06/08/18 Sennosides/Docusate Sodium [Senna 1 each PO DAILY 06/08/18 06/08/18 Unknown Plus] - Active Medications Active Medications: Current Medications Acetaminophen (Tylenol 325mg) 650 mg PO Q6H PRN PRN Reason: PAIN - MILD(1-4)/FEVER Last Admin: 06/09/18 06:26 Dose: 650 mg Ascorbic Acid (Vitamin C) 1,000 mg PO DAILY [facility] Last Admin: 06/09/18 10:07 Dose: 1,000 mg Diphenhydramine HCl (Benadryl Capsule) 50 mg PO Q6H PRN PRN Reason: insomnia Last Admin: 06/09/18 02:15 Dose: 50 mg Enoxaparin Sodium (Lovenox) 40 mg SQ DAILY [facility] Last Admin: 06/09/18 10:06 Dose: 40 mg Sodium Chloride () 1,000 mls @ 75 mls/hr IV .[id number] PRN PRN Reason: LARGE VOLUME IV Metoprolol Succinate (Toprol Xl) 25 mg PO DAILY [facility] Last Admin: 06/09/18 10:07 Dose: 25 mg Ondansetron HCl (Zofran) 4 mg IVP Q4H PRN PRN Reason: NAUSEA Pantoprazole Sodium (Protonix) 40 mg PO DAILYAC [facility] Last Admin: 06/09/18 06:25 Dose: 40 mg Phenazopyridine HCl (Azo Urinary Pain Relief) 190 mg PO BID [facility] Last Admin: 06/09/18 10:06 Dose: 190 mg Tramadol HCl (Ultram) 50 mg PO Q6H [facility] Last Admin: 06/09/18 07:48 Dose: Not Given Trazodone HCl (Desyrel) 100 mg PO QHS [facility] Valsartan (Diovan) 320 mg PO DAILY [facility] Last Admin: 06/09/18 10:06 Dose: 320 mg Physical Exam - Vital Signs Vital Signs: Vital Signs - Last 24 Hrs Temp Pulse Resp BP Pulse Ox 06/09/18 08:08 18 06/09/18 06:00 77 16 132/66 91 L 06/09/18 02:33 83 16 06/09/18 01:41 98.4 F 83 16 190/72 95 06/09/18 01:39 80 20 130/80 95 06/09/18 00:03 77 22 148/86 95 06/08/18 22:32 98.8 F 89 20 141/65 95 - General General Appearance: Alert, Oriented x3, Cooperative, No acute distress Limitations: No limitations - Head Head exam: Atraumatic, Normal inspection - Eye Eye exam: Normal appearance. negative: Conjunctival injection - ENT ENT exam: Normal exam, Mucous membranes moist Ear exam: Normal external inspection Nasal Exam: Normal inspection Mouth exam: Normal external inspection - Neck Neck exam: Normal inspection - Respiratory Respiratory exam: Normal lung sounds bilaterally. negative: Respiratory distress - Cardiovascular Cardiovascular Exam: Regular rate, Normal rhythm, Normal heart sounds Peripheral Pulses: 2+: Radial (R), Radial (L), Dorsalis Pedis (R), Dorsalis Pedis (L) - GI/Abdominal GI/Abdominal exam: Soft, Normal bowel sounds, Tenderness (mild tender diffusely. very soft abdomen). negative: Distended, Guarding, Rebound - Rectal Rectal exam: Deferred - exam: Deferred - Extremities Extremities exam: Normal inspection - Back Back exam: Denies: CVA tenderness (R), CVA tenderness (L) - Neurological Neurological exam: Alert, Normal gait, Oriented X3 - Psychiatric Psychiatric exam: Normal affect, Normal mood. negative: Agitated, Anxious - Skin Skin exam: Dry, Intact, Normal color, Warm Results - Labs Result Diagrams: 06/09/18 06:28 06/09/18 06:28 Labs Last 24 Hours: Laboratory Results - last 24 hr 06/08/18 06/08/18 06/08/18 22:50 22:50 Unknown WBC 18.0 H RBC 4.56 Hgb 12.9 Hct 40.7 MCV 89.3 MCH 28.3 MCHC 31.7 L RDW 13.5 Plt Count 232 MPV 9.6 Gran % Neutrophils % 79.0 Band Neutrophils % 8.0 H Lymphocytes % Monocytes % Eosinophils % Not Reportable Basophils % Not Reportable Lymphocytes 2.0 L Monocytes 11.0 H Toxic Granulation 1+ Platelet Estimate Normal RBC Morphology Normal Sodium 135 L Potassium 3.3 L Chloride 95 L Carbon Dioxide 25.0 Anion Gap 15.0 BUN 10 Creatinine 0.6 Estimated GFR > 60 Random Glucose 102 Lactic Acid 1.1 Calcium 9.4 Total Bilirubin 2.20 H AST 36 H ALT 62 H Alkaline Phosphatase 153 H Total Protein 6.5 L Albumin 3.3 L Globulin 3.2 Albumin/Globulin Ratio 1.0 L Lipase 8 L Urine Color Yellow Urine Appearance Cloudy Urine pH 6.5 Ur Specific [place] 1.015 Urine Protein 300 mg/dl H Urine Glucose (UA) Negative Urine Ketones Negative Urine Blood Moderate Urine Nitrite Positive H Urine Bilirubin Negative Urine Urobilinogen 1.0 Ur Leukocyte Esterase Large H Urine RBC 3 - 6 Urine WBC 21 - 35 Ur Epithelial Cells 0 - 2 Urine Bacteria 2+ 06/09/18 06/09/18 06:28 06:28 WBC 14.2 H RBC 3.98 Hgb 11.3 L Hct 36.0 MCV 90.5 MCH 28.3 MCHC 31.4 L RDW 13.4 Plt Count 229 MPV 10.1 Gran % 80.0 Neutrophils % Band Neutrophils % Lymphocytes % 10.4 L Monocytes % 9.3 H Eosinophils % 0.2 Basophils % 0.1 Lymphocytes Monocytes Toxic Granulation Platelet Estimate RBC Morphology Sodium 138 Potassium 3.2 L Chloride 102 Carbon Dioxide 24.0 Anion Gap 12.0 BUN 7 L Creatinine 0.4 L Estimated GFR > 60 Random Glucose 96 Lactic Acid Calcium 8.3 L Total Bilirubin 1.60 H AST 28 ALT 50 H Alkaline Phosphatase 145 H Total Protein 5.6 L Albumin 2.7 L Globulin 2.9 Albumin/Globulin Ratio 0.9 L Lipase Urine Color Urine Appearance Urine pH Ur Specific [place] Urine Protein Urine Glucose (UA) Urine Ketones Urine Blood Urine Nitrite Urine Bilirubin Urine Urobilinogen Ur Leukocyte Esterase Urine RBC Urine WBC Ur Epithelial Cells Urine Bacteria VTE H&P Assessment - Risk for VTE Risk for VTE: Yes Risk Level: Moderate Risk Assessment Date: 06/09/18 Risk Assessment Time: 10:59 VTE Orders Placed or Will Be Placed: Yes Plan - Inpatient Certification Inpatient Certification: Admit to inpatient care: Based on my medical assessment, after consideration of patient's risk factors (age, co-morbidities and patient presenting symptoms and acuity), I expect that this patient will remain in the hospital greater than or equal to two midnights and that the services needed warrant inpatient care because: Patient Risk Factors: [age, UTI, hypokalemia] Estimated length of stay: The patient may reasonably be expected to be discharged or transferred to a hospital within 48-96 hours after admission to [facility]. Services needed: [IV hydration, IV antibiotics, lab monitoring] Post hospital care (if known): [] I certify that my determination is in accordance with my understanding of Medicare requirements for reasonable and necessary inpatient services. 06/09/18 10:59 06/09/18 11:00 - Detailed Diagnosis and Plan (1) Urinary tract infection Current Visit: Yes Status: Acute Base Code: N39.0 - URINARY TRACT INFECTION , SITE NOT SPECIFIED Comment: 06/09/18: UA in ED positive for nitrites, large leukocytes, and blood. Was started on Macrobid 1 day prior to admission. -Urine culture pending -Abd/pelvis CT: no acute findings -WBC 18 in ED, 14.2 today -Continue with Rocephin 1gm IVPB q12h -IV hydration with Normal Saline @ 75ml/hr -Recheck CBC in the morning (2) Malaise and fatigue Current Visit: Yes Status: Acute Base Code: R53.81 - OTHER MALAISE; R53.83 - OTHER FATIGUE Comment: 06/09/18: Patient reports poor PO intake since Thursday due to fatigue, generalized pain, and weakness -Reports mildly improved weakness, fatigue, and malaise -Will continue with IV hydration of NS @ 75ml/hr -Advance diet as tolerated (3) Hypokalemia Current Visit: Yes Status: Acute Base Code: E87.6 - HYPOKALEMIA Comment: 06/09/18: -K in ED 3.2, replaced with 20mEq K PO -Will recheck K in the morning -Advancing diet as tolerated (4) DVT prophylaxis Current Visit: No Status: Acute Base Code: [id number] - Comment: 06/09/18: moderate risk due to age, hospitalization, and infection - Lovenox 40mg daily (5) Full code status Current Visit: No Status: Acute Base Code: Z78.9 - OTHER SPECIFIED HEALTH STATUS Comment: 06/09/18: Patient is a full code
[2018-06-09] MEDS: CEFTRIAXONE 1GM/50ML BAG IVPB SCH (11:35)
--- NOTE | 2018-06-09 14:29 | CT SCAN REPORT ---
EXAM: CT SCAN ABDOMEN/PELVIS W CONTRAST HISTORY: ABDOMINAL PAIN. TECHNIQUE: Sequential axial images were obtained from the diaphragms through the ischiorectal fossa after the intravenous and oral administration of 100 mL of Omnipaque-300 contrast material. FINDINGS: The visualized lung bases demonstrate subpleural reticulation. There is cardiomegaly without pericardial effusion. The liver appears homogeneous. The pancreas and spleen appear normal. There is a left adrenal nodule measuring 16 mm. The right adrenal gland appears normal. There are multiple cystic lesions in the left kidney. There is mild prominence of the right renal collecting system. No evidence of obstruction. The urinary bladder appears normal. There is nonspecific fluid in the pelvis. There is colonic diverticulosis. There are fat-containing inguinal hernias. There is multilevel degenerative change of the osseous structures. IMPRESSION: 1. MULTIPLE CYSTIC LESIONS IN THE LEFT KIDNEY. 2. LEFT ADRENAL NODULE. 3. NONSPECIFIC FLUID IN THE PELVIS. JOB NUMBER: [id number] MTDD
[2018-06-09] MEDS ORDERED: TRAMADOL HCL 50 MG TABLET PO PRN (14:45)
[2018-06-09] MEDS ORDERED: BREO (FLUTICASONE/VILANTEROL) 100MCG/25MCG INHALER INH ONE (14:46)
[2018-06-09] MEDS: BREO (FLUTICASONE/VILANTEROL) 100MCG/25MCG INHALER INH SCH (14:49)
[2018-06-09] MEDS ORDERED: TRAZODONE 50 MG TABLET PO SCH (22:00)
[2018-06-10] MEDS: CEFTRIAXONE 1GM/50ML BAG IVPB SCH ×3 (00:25→14:09)
[2018-06-10] MEDS: PANTOPRAZOLE SODIUM 40 MG TABLET PO SCH (06:12)
[2018-06-10 08:50] LABS: BASO % 0.4 % (0-6); EOS % 0.5 % (0-6); GRAN % 73.7 % (47-80); HEMATOCRIT 38.1 % (35.0-47.0); LYMPH % 12.7 % (16-45); MEAN CELL VOLUME 91.1 fl (81-97); MEAN CORPUSCULAR HEMOGLOBIN 28.7 pg (27-33); MEAN CORPUSCULAR HGB CONC 31.5 g/dl (32-36); MEAN PLATELET VOLUME 9.5 fl (7.4-10.4); MONO % 12.7 % (0-9); PLATELET COUNT 235 K/uL (130-400); RED BLOOD COUNT 4.18 M/uL (3.80-5.40); RED CELL DISTRIBUTION WIDTH 13.5 % (11.5-14.5); WHITE BLOOD COUNT W/O DIFF 13.9 K/uL (4.2-12.2)
[2018-06-10 09:06] LABS: ALB/GLOB RATIO 0.7 (1.1-1.8); ALBUMIN 2.5 g/dL (4.0-5.0); ALKALINE PHOSPHATASE 156 U/L (35-104); ALT/SGPT 44 U/L (<33); AST/SGOT 31 U/L (10.0-35.0); BLOOD UREA NITROGEN 5 mg/dL (8-23); CREATININE 0.5 mg/dL (0.5-0.9); EST GLOMERULAR FILTRATION RATE > 60 mL/min; GLUCOSE,RANDOM 97 mg/dL (74-109)
[2018-06-10] MEDS: BREO (FLUTICASONE/VILANTEROL) 100MCG/25MCG INHALER INH SCH (09:41)
--- NOTE | 2018-06-10 10:28 | Discharge Summary ---
Providers Discharge Summary Date: 06/10/18 Date of admission: 06/09/18 01:40 Expected Date of Discharge: 06/10/18 Attending physician: XU SMITH Primary care physician: SERGO ELKINS D.O. Physical Exam - Vital Signs Vital Signs: Vital Signs - Last 24 Hrs Temp Pulse Pulse Resp BP Pulse Ox 06/10/18 09:41 83 18 93 L 06/10/18 06:00 99.1 F 82 16 127/48 96 06/09/18 22:00 98.1 F 76 16 129/57 94 L 06/09/18 21:00 16 06/09/18 14:49 80 16 98 06/09/18 14:00 98.1 F 84 18 155/75 91 L - General General Appearance: Alert, Oriented x3, Cooperative, No acute distress Limitations: No limitations - Head Head exam: Atraumatic, Normal inspection - Eye Eye exam: Normal appearance. negative: Conjunctival injection - ENT ENT exam: Normal exam, Mucous membranes moist Ear exam: Normal external inspection Nasal Exam: Normal inspection Mouth exam: Normal external inspection - Neck Neck exam: Normal inspection - Respiratory Respiratory exam: Normal lung sounds bilaterally. negative: Respiratory distress - Cardiovascular Cardiovascular Exam: Regular rate, Normal rhythm, Normal heart sounds Peripheral Pulses: 2+: Radial (R), Radial (L), Dorsalis Pedis (R), Dorsalis Pedis (L) - GI/Abdominal GI/Abdominal exam: Soft, Normal bowel sounds. negative: Distended, Guarding, Rebound, Tenderness - Rectal Rectal exam: Deferred - exam: Deferred - Extremities Extremities exam: Normal inspection - Back Back exam: Denies: CVA tenderness (R), CVA tenderness (L) - Neurological Neurological exam: Alert, Normal gait, Oriented X3 - Psychiatric Psychiatric exam: Normal affect, Normal mood. negative: Agitated, Anxious - Skin Skin exam: Dry, Intact, Normal color, Warm Hospitalization - Hospitalization Admission Diagnosis: UTI, abdominal pain, elevated WBC count,dehydration - Problem List/Discharge Diagnosis (1) Urinary tract infection Current Visit: Yes Status: Acute Base Code: N39.0 - URINARY TRACT INFECTION , SITE NOT SPECIFIED Comment: 06/10/18: UA in ED positive for nitrites, large leukocytes, and blood. Was started on Macrobid 1 day prior to admission. -Urine culture pending -Abd/pelvis CT: no acute findings -WBC 18 in ED, 13.9 today -Continue with Rocephin 1gm IVPB q12h -IV hydration with Normal Saline @ 75ml/hr -Tolerating PO intake -Will dc home on Cefdinir 300mg BID (2) Malaise and fatigue Current Visit: Yes Status: Acute Base Code: R53.81 - OTHER MALAISE; R53.83 - OTHER FATIGUE Comment: 06/10/18: Patient reports poor PO intake since Thursday due to fatigue, generalized pain, and weakness -Reports improved weakness, fatigue, and malaise -Has received IV hydration of NS @ 75ml/hr -Tolerating PO intake (3) Elevated liver enzymes Current Visit: Yes Status: Acute Base Code: R74.8 - ABNORMAL LEVELS OF OTHER SERUM ENZYMES Comment: 06/10/18: Patient presented with elevated liver enzymes in ED. Some improvement with IV hydration -AST 31, ALT 44, Alk Phos 156 today -No history of elevated enzymes -Patient to follow-up with PCP for further evaluation (4) DVT prophylaxis Current Visit: No Status: Acute Base Code: [id number] - Comment: 06/10/18: moderate risk due to age, hospitalization, and infection - Lovenox 40mg daily, will not require prophylaxis at home as patient will resume her normal activity (5) Full code status Current Visit: No Status: Acute Base Code: Z78.9 - OTHER SPECIFIED HEALTH STATUS Comment: 06/10/18: Patient is a full code - Hospitalization Course Disposition: Home, Self-Care Hospital Course: 82 year old female patient presents to ED for generalized "not feeling well" since Thursday. Patient states she began having nausea, vomiting, decreased appetite, and generalized pain. She was seen in [facility] on Thursday and diagnosed with a UTI. Patient was started on Macrobid at that time. Patient states she continued to have worsening of symptoms and presented to ED Thursday night. Patient reports very little PO intake since Thursday, diffuse abdominal pain, no diarrhea, no recent vomiting, and no fevers. Patient's medical history includes HTN, hysterectomy, cholecystectomy, abdominal adhesions, and RUL lobectomy due to lung cancer. PCP: Dr. Becky Elkins ED Course: Temp 98.8F, RR 20, BP 141/65, HR 89, Pulse ox 95% WBC 18, K 3.3, Bili 2.2, AST 26, ALT 62, Alk Phos 153, Lactic acid 1.1, lipase nml UA: positive for nitrites, moderate blood, large leukocytes Abd/pelvis CT: left renal cysts, left adrenal nodule, diverticula without diverticulitis 06/09/18: Patient A&O x 4, resting comfortably in bed. Patient tolerating clear liquid diet, ambulating in room to bathroom. Patient continues to report weakness and fatigue, but states the nausea and abdominal pain are improving. Has been receiving Rocephin 1gm IVPB q12hr and IV hydration at 125ml/hr. Will continue with IV hydration, IV Rocephin, and advancing diet as tolerated. 06/10/18: Patient A&O x 4, resting comfortably in bed. Patient has tolerated advancing her diet, no nausea or abdominal pain. Patient has been ambulating through halls with no assistance. Will dc home on Cefdinir 300mg BID, and dc Macrobid. Patient to follow-up with PCP in 2 weeks. Procedures: Imaging and X-Rays 06/08/18 22:34 ABDOMEN/PELVIS W CONTRAST [CT] Stat Abnormal Labs: Abnormal Lab Results 06/08/18 06/08/18 06/08/18 Range/Units 22:50 22:50 Unknown WBC 18.0 H (4.2-12.2) K/uL Hgb (11.6-16.0) gm/dl MCHC 31.7 L (32-36) g/dl Band Neutrophils % 8.0 H (0-5) % Lymphocytes % (16-45) % Monocytes % (0-9) % Lymphocytes 2.0 L (16-45) % Monocytes 11.0 H (0-9) % Sodium 135 L (136-145) mmol/L Potassium 3.3 L (3.4-4.5) mmol/L Chloride 95 L (98-107) mmol/L Carbon Dioxide (22-29) mmol/L BUN (8-23) mg/dL Creatinine (0.5-0.9) mg/dL Calcium (8.8-10.2) mg/dL Total Bilirubin 2.20 H (0.2-1.0) mg/dL AST 36 H (10.0-35.0) U/L ALT 62 H (<33) U/L Alkaline Phosphatase 153 H (35-104) U/L Total Protein 6.5 L (6.6-8.7) g/dL Albumin 3.3 L (4.0-5.0) g/dL Albumin/Globulin Ratio 1.0 L (1.1-1.8) Lipase 8 L (13-60) U/L Urine Protein 300 mg/dl H (NEGATIVE) Urine Nitrite Positive H (NEGATIVE) Ur Leukocyte Esterase Large H (NEGATIVE) 06/09/18 06/09/18 06/10/18 Range/Units 06:28 06:28 08:38 WBC 14.2 H 13.9 H (4.2-12.2) K/uL Hgb 11.3 L (11.6-16.0) gm/dl MCHC 31.4 L 31.5 L (32-36) g/dl Band Neutrophils % (0-5) % Lymphocytes % 10.4 L 12.7 L (16-45) % Monocytes % 9.3 H 12.7 H (0-9) % Lymphocytes (16-45) % Monocytes (0-9) % Sodium (136-145) mmol/L Potassium 3.2 L (3.4-4.5) mmol/L Chloride (98-107) mmol/L Carbon Dioxide (22-29) mmol/L BUN 7 L (8-23) mg/dL Creatinine 0.4 L (0.5-0.9) mg/dL Calcium 8.3 L (8.8-10.2) mg/dL Total Bilirubin 1.60 H (0.2-1.0) mg/dL AST (10.0-35.0) U/L ALT 50 H (<33) U/L Alkaline Phosphatase 145 H (35-104) U/L Total Protein 5.6 L (6.6-8.7) g/dL Albumin 2.7 L (4.0-5.0) g/dL Albumin/Globulin Ratio 0.9 L (1.1-1.8) Lipase (13-60) U/L Urine Protein (NEGATIVE) Urine Nitrite (NEGATIVE) Ur Leukocyte Esterase (NEGATIVE) 06/10/18 Range/Units 08:38 WBC (4.2-12.2) K/uL Hgb (11.6-16.0) gm/dl MCHC (32-36) g/dl Band Neutrophils % (0-5) % Lymphocytes % (16-45) % Monocytes % (0-9) % Lymphocytes (16-45) % Monocytes (0-9) % Sodium (136-145) mmol/L Potassium (3.4-4.5) mmol/L Chloride (98-107) mmol/L Carbon Dioxide 19.0 L (22-29) mmol/L BUN 5 L (8-23) mg/dL Creatinine (0.5-0.9) mg/dL Calcium 8.3 L (8.8-10.2) mg/dL Total Bilirubin 1.60 H (0.2-1.0) mg/dL AST (10.0-35.0) U/L ALT 44 H (<33) U/L Alkaline Phosphatase 156 H (35-104) U/L Total Protein 6.0 L (6.6-8.7) g/dL Albumin 2.5 L (4.0-5.0) g/dL Albumin/Globulin Ratio 0.7 L (1.1-1.8) Lipase (13-60) U/L Urine Protein (NEGATIVE) Urine Nitrite (NEGATIVE) Ur Leukocyte Esterase (NEGATIVE) Condition at Discharge: (1) Good VTE Discharge VTE Reason For No Overlap Therapy: Not Indicated Discharge Medications - Discharge Medications Prescriptions: Cefdinir [Omnicef] 300 mg PO BID 5 Days #10 cap Home Medications: Ambulatory Orders Candesartan Cilexetil [Atacand] 32 mg PO DAILY 06/19/16 [Last Taken 06/18/16] Estrogens, Conjugated [Premarin] 0.45 mg PO DAILY 06/19/16 [Last Taken 06/18/16] Fluticasone/Salmeterol 100/50 [Advair 100/50] 1 disk IH Q12H 06/19/16 [Last Taken 06/18/16] Metoprolol Succinate [Toprol Xl] 25 mg PO DAILY 06/19/16 [Last Taken 06/18/16] Rabeprazole Sodium [Aciphex] 20 mg PO DAILY 06/19/16 [Last Taken 06/18/16] Tramadol HCl [Ultram] 50 mg PO Q6H 06/19/16 [Last Taken Unknown] Trazodone HCl 100 mg PO DAILY 06/19/16 [Last Taken 06/18/16] Ascorbic Acid [Vitamin C] 1,000 mg PO DAILY 06/08/18 [Last Taken Unknown] B12/Levomefolate Calcium/B-6 [Folbic Rf Tablet] 1 each PO DAILY 06/08/18 [Last Taken Unknown] Ergocalciferol (Vitamin D2) [Vitamin D2] 50,000 unit PO DAILY 06/08/18 [Last Taken Unknown] Magnesium Oxide [Magnesium] 500 mg PO DAILY 06/08/18 [Last Taken Unknown] Nitrofurantoin Williamson [Macrobid] 100 mg PO BID 06/08/18 [Last Taken 06/08/18] Phenazopyridine HCl [Pyridium] 200 mg PO BID 06/08/18 [Last Taken 06/08/18] Sennosides/Docusate Sodium [Senna Plus] 1 each PO DAILY 06/08/18 [Last Taken Unknown] Cefdinir [Omnicef] 300 mg PO BID 5 Days #10 cap 06/10/18 [Last Taken Unknown] Discharge Plan - Discharge Instructions Activity at Discharge: Increase Activity as Tolerated Diet at Discharge: Advance to Usual Diet Additional Instructions: -Start the antibiotic, Cefdinir, tonight. You will need to take it twice a day for 5 days -Follow-up with your PCP, Dr. Elkins, in 2 weeks. Also be sure to let her know you had mildly elevated liver enzymes while admitted: AST 31 ALT 44 Alk Phos 156 Quality Measures - Quality Measures Quality Measures: Advance Directives, Documentation of Current Medications in Medical Record, Elder Maltreatment Screen and Follow-Up Plan, Screening for High Blood Pressure and F/U Documented - Current Medications Quality Measure: Measure #130: Documentation of Current Medications Documentation of Current Medications: <Current Medications Documented/Reviewed> [G8427] - Blood Pressure Screening Quality Measure: Screening for High Blood Pressure and Follow-Up Documented Does Patient Have Any of the Following: Active Dx of HTN Blood Pressure Classification: Pre-Hypertensive BP Reading Systolic Measurement: 127 Diastolic Measurement: 48 Screening for High Blood Pressure: Patient Exclusion, Hx of HTN [G9744] - Advance Directives Quality Measure: Measure #47: Care Plan Advance Directives Established: Yes Advance Directives Information Provided To Patient: Already Provided Advance Directives on File: No Living Will: Yes Power of Stripper And Taper: Yes Advance Care Planning: Not Discussed or Documented [[id number]] - Elder Abuse Suspicion Index Screening: Elder Abuse Suspicion Index Screening Rely on people for bathing, dressing, shopping, banking, etc: No Prevented from getting food, clothes, medication, etc: No Made to feel shamed or threatened by someone: No Forced to sign papers or use money against will: No Feel afraid, touched in ways not wanted or hurt physically: No Poor eye contact, withdrawn, malnourished, cuts or bruises: No Screening Result: Negative result EASI Reference Information: Harrison MORLEY, Tarik C, Ricarda Metzger, Jeromy May.Development and validation of a tool to assist physicians identification of elder abuse: The Elder Abuse Suspicion Index (EASI ). Journal of Elder Abuse and Neglect, 2008; 20 (3): 276-300. - Elder Maltreatment Screen Quality Measures: Elder Maltreatment Screen and Follow-Up Plan Elder Maltreatment Screen: <Negative, No Follow-Up Plan Required> [G8734]
[2018-06-10] MEDS: VALSARTAN 80 MG TAB PO SCH ×2 (10:30→11:50)
[2018-06-10] MEDS: METOPROLOL SUCC 25 MG TAB.ER PO SCH (10:30)
[2018-06-10] MEDS: ASCORBIC ACID 500 MG TAB PO SCH (10:30)
[2018-06-10] MEDS: ENOXAPARIN 40 MG/0.4 ML SYR SQ SCH (10:32)
== END 2018-06-10 13:03 | disposition home or self-care (01) | DRG 948 ==
LOC: ER 22:17 → MEDSURG 06-09 01:40
PROVIDERS: ADMIT Internal Medicine; ATTEND Internal Medicine
DX: R53.81 Other malaise (principal); E87.6 Hypokalemia; E86.0 Dehydration; R11.2 Nausea with vomiting, unspecified; R74.8 Abnormal levels of other serum enzymes; I10 Essential (primary) hypertension; R10.84 Generalized abdominal pain; K21.9 Gastro-esophageal reflux disease without esophagitis; M19.90 Unspecified osteoarthritis, unspecified site; Z87.11 Personal history of peptic ulcer disease; Z87.19 Personal history of other diseases of the digestive system; Z85.118 Personal history of other malignant neoplasm of bronchus and lung
CPT/HCPCS: 99285 ×2; 96365; 96375; 83605; 83690; 80053; 81001; 85027; 74177; Q9967; J2405; J0696; 85025; 94640; 99223; 99233; J1650; J7030

== ENCOUNTER 2018-12-01 10:56 | Emergency (ER) | payer MEDICARE, OTHER ==
--- NOTE | 2018-12-01 11:36 | Emergency Department Record ---
History of Present Illness - General Chief complaint: Nosebleed/epistaxis Stated complaint: NOSE BLEED Time Seen by Provider: 12/01/18 11:04 Source: Patient, RN notes reviewed Mode of Arrival: Ambulatory - History of Present Illness Initial comments: right nostril nose bleed and small amount of bleeding this AM and more bleeding about 9 am and came to the ED and she uses aspirin and has not taken it today and she uses it just for good health no specific reason. Primary is Nenita Field here at [facility] Onset/Timin -: Minutes(s) Location: Nose Severity scale (1-10): 1 Quality: Aching Context-Epistaxis: Aspirin use - Related Data Home Medications Medication Instructions Recorded Confirmed Last Taken Cholecalciferol (Vitamin D3) 2,000 unit PO DAILY 12/01/18 12/01/18 1 Day Ago [Vitamin D3] ~11/30/18 L.acidoph,Paracasei, B.lactis 1 each PO BID 12/01/18 12/01/18 1 Day Ago [Probiotic] ~11/30/18 Multivitamin with Minerals [Hair, 1 each PO DAILY 12/01/18 12/01/18 1 Day Ago Skin & Nails] ~11/30/18 Allergies Allergy/AdvReac Type Severity Reaction Status Date / Time ciprofloxacin [From Cipro] AdvReac RASH Verified 12/01/18 11:07 ciprofloxacin HCl AdvReac RASH Verified 12/01/18 11:07 [From Cipro] esomeprazole magnesium AdvReac RASH Verified 12/01/18 11:07 [From Nexium] levofloxacin [From Levaquin] AdvReac HIVES Verified 12/01/18 11:07 Travel Screening - Travel/Exposure Within Last 30 Days Have you traveled within the last 30 days?: No - Travel/Exposure Within Last Year Have you traveled outside the [place] in the last year?: No - Additonal Travel Details Have you been exposed to anyone with a communicable illness?: No - Travel Symptoms Symptom Screening: None Review of Systems Reviewed: No additional complaints except as noted below Constitutional: Reports: As per HPI. Denies: Chills, Fever, Malaise, Night sweats, Weakness, Weight change Eyes: Reports: As per HPI. Denies: Eye discharge, Eye pain, Photophobia, Vision change ENT: Reports: As per HPI, Epistaxis (right nostril). Denies: Congestion, Dental pain, Ear pain, Hearing loss, Throat pain Respiratory: Reports: As per HPI. Denies: Cough, Dyspnea, Hemoptysis, Stridor, Wheezes Cardiovascular: Reports: As per HPI. Denies: Arrhythmia, Chest pain, Dyspnea on exertion, Edema, Murmurs, Orthopnea, Palpitations, Paroxysmal nocturnal dyspnea, Rheumatic Fever, Syncope Endocrine: Reports: As per HPI. Denies: Fatigue, Heat or cold intolerance, Polydipsia, Polyuria Gastrointestinal: Reports: As per HPI. Denies: Abdominal pain, Constipation, Diarrhea, Hematemesis, Hematochezia, Melena, Nausea, Vomiting Genitourinary: Reports: As per HPI. Denies: Abnormal menses, Discharge, Dyspareunia, Dysuria, Frequency, Hematuria, Incontinence, Retention, Urgency Musculoskeletal: Reports: As per HPI. Denies: Arthralgia, Back pain, Gout, Joint swelling, Myalgia, Neck pain Skin: Reports: As per HPI. Denies: Bruising, Change in color, Change in hair/nails, Lesions, Pruritus, Rash Neurological: Reports: As per HPI. Denies: Abnormal gait, Confusion, Headache, Numbness, Paresthesias, Seizure, Tingling, Tremors, Vertigo, Weakness Psychiatric: Reports: As per HPI. Denies: Anxiety, Auditory hallucinations, Depression, Homicidal thoughts, Suicidal thoughts, Visual hallucinations Hematological/Lymphatic: Reports: As per HPI. Denies: Anemia, Blood Clots, Easy bleeding, Easy bruising, Swollen glands Past Medical History - SOCIAL HISTORY Smoking Status: Former smoker Alcohol Use: None Drug Use: None - RESPIRATORY Hx Respiratory Disorders: Yes Hx Asthma: Yes Hx Bronchitis: No Hx COPD: Yes Hx Dyspnea: No Hx Pneumonia: No Hx Pulmonary Embolism: No Hx Sleep Apnea: No Hx Tuberculosis: No Hx of CPAP: No - CARDIOVASCULAR Hx Cardio Disorders: Yes Hx Abnormal EKG: No Hx Cardiac Cath: No Hx Chest Pain: No Hx CHF: No Hx Deep Vein Thrombosis: No Hx Edema: No Hx Heart Attack: No Hx Hypertension: Yes Hx Hypotension: No Hx Irregular Heartbeat: No Hx Palpitations: Yes Hx Pacemaker/Defib: No Hx Vascular Disease: No - NEURO Hx Neuro Disorders: No - GI Hx GI Disorders: Yes Hx Abdominal Pain: Yes Hx Celiac Disease: No Hx Crohn's Disease: No Hx Diverticulitis: Yes Hx GI Bleed: No Hx Reflux: Yes Hx Hepatitis/Jaundice: No Hx Hiatal Hernia: No Hx Irritable Bowel: Yes Hx Liver Disease: No Hx Nausea/Vomiting: No Hx Obstructive Bowel: Yes Hx Pancreatitis: No Hx Rectal Bleeding: No Hx Ulcer: Yes Hx Wt Loss/Wt Gain: No Hx of Polyps: Yes Comment:: Adhesions - Hx Genitourinary Disorders: Yes Hx Bladder Problem: No Hx Dialysis: No Hx Kidney Stones: No Hx Renal Disease: No Hx UTI: Yes - ENDOCRINE Hx Endocrine Disorders: No Hx Diabetes: No Hx Thyroid Disease: No - MUSCULOSKELETAL Hx Musculoskeletal Disorders: Yes Hx Arthritis: Yes Hx Back Injury: No Hx Fibromyalgia: No Hx Gout: No Hx Musculoskeletal Disease: No Hx Osteoporosis: No - PSYCH Hx Psych Problems: No - HEMATOLOGY/ONCOLOGY Hx Hematology/Oncology Disorders: No Hx Cancer: Yes (lung) Hx Chemotherapy: No Hx Radiation Therapy: No Family Medical History Any Significant Family History?: Yes Family Hx Comment (NOT TO BE USED IN PLACE OF ITEMS BELOW): denies Physical Exam - General General Appearance: Alert, Oriented x3, Cooperative, No acute distress - Head Head exam: Normal inspection - Eye Eye exam: Normal appearance, PERRL Pupils: Normal accommodation - ENT ENT exam: Mucous membranes moist, Normal external ear exam, TM's normal bilaterally Ear exam: Normal external inspection. negative: External canal tenderness Nasal Exam: Active bleeding (right nostril ). negative: Discharge, Sinus tenderness Mouth exam: Normal external inspection, Tongue normal Teeth exam: Normal inspection. negative: Dental caries Throat exam: Normal inspection. negative: Tonsillar erythema, Tonsillar exudate - Neck Neck exam: Normal inspection, Full ROM. negative: Tenderness - Respiratory Respiratory exam: Normal lung sounds bilaterally. negative: Respiratory distress - Cardiovascular Cardiovascular Exam: Regular rate, Normal rhythm, Normal heart sounds - GI/Abdominal GI/Abdominal exam: Soft, Normal bowel sounds. negative: Tenderness - Rectal Rectal exam: Deferred - exam: Deferred - Extremities Extremities exam: Normal inspection, Full ROM, Normal capillary refill. negative: Tenderness - Back Back exam: Reports: Normal inspection, Full ROM. Denies: Muscle spasm, Rash noted, Tenderness - Neurological Neurological exam: Alert, Normal gait, Oriented X3, Reflexes normal - Psychiatric Psychiatric exam: Normal affect, Normal mood - Skin Skin exam: Dry, Intact, Normal color, Warm Course Vital Signs 12/01/18 11:01 Temperature 98.1 F Pulse Rate 81 Respiratory 18 Rate Blood Pressure 171/51 Pulse Ox 98 - Reevaluation(s) Reevaluation #1: clots blown out of nose and nose clamp applied 12/01/18 11:52 Reevaluation #2: TLE placed in the nose and silver nitrate cautery used to cauterize kesselbachs plexus right side 12/01/18 12:09 Medical Decision Making - Lab Data Result diagrams: 12/01/18 12:00 12/01/18 12:00 Disposition Clinical Impression: Anterior epistaxis Disposition: Home, Self-Care Condition: (1) Good Instructions: Nosebleed (ED) Additional Instructions: if bleeding starts back up blow out clots and pinch the nose for 20 minutes and if bleeding doesn't stop return to the ED. put vasoline in the nose to help the nose heal. Forms: Patient Portal Access Time of Disposition: 11:53 Quality - Quality Measures Quality Measures: N/A - Blood Pressure Screening Does Patient Have Any of the Following: No, Active Dx of HTN Blood Pressure Classification: Hypertensive Reading Systolic Measurement: 171 Diastolic Measurement: 51 Screening for High Blood Pressure: Patient Exclusion, Hx of HTN [G9744]
[2018-12-01 12:05] LABS: ABSOLUTE NEUTROPHIL COUNT 3.83; BASO % 0.6 % (0-6); EOS % 4.3 % (0-6); GRAN % 54.6 % (47-80); HEMATOCRIT 46.8 % (35.0-47.0); HEMOGLOBIN 14.8 gm/dl (11.6-16.0); LYMPH % 31.4 % (16-45); MEAN CELL VOLUME 89.5 fl (81-97); MEAN CORPUSCULAR HEMOGLOBIN 28.3 pg (27-33); MEAN CORPUSCULAR HGB CONC 31.6 g/dl (32-36); MEAN PLATELET VOLUME 9.4 fl (7.4-10.4); MONO % 9.1 % (0-9); PLATELET COUNT 284 K/uL (130-400); RED BLOOD COUNT 5.23 M/uL (3.80-5.40); RED CELL DISTRIBUTION WIDTH 14.5 % (11.5-14.5)
[2018-12-01] MEDS ORDERED: TOPICAL LIDOCAINE W/ EPI 5 ML TOP ONE (12:07)
[2018-12-01 12:17] LABS: PARTIAL THROMBOPLASTIN TIME 27.9 SECONDS (24.5-39.1); PROTHROMBIN TIME (PATIENT) 10.6 SECONDS (9.5-12.1)
[2018-12-01 12:18] LABS: BLOOD UREA NITROGEN 15 mg/dL (8-23); CREATININE 0.7 mg/dL (0.5-0.9); EST GLOMERULAR FILTRATION RATE > 60 mL/min
[2018-12-01 12:21] LABS: GLUCOSE,RANDOM 100 mg/dL (74-109)
== END 2018-12-01 12:59 | disposition home or self-care (01) ==
LOC: ER 10:56
DX: R04.0 Epistaxis (principal); I10 Essential (primary) hypertension; J44.9 Chronic obstructive pulmonary disease, unspecified; Z79.82 Long term (current) use of aspirin; Z87.891 Personal history of nicotine dependence
CPT/HCPCS: 30901; 80048; 85025; 85610; 85730; 99283